=== PATIENT | female | born 1935 | race Caucasian/White ===

== ENCOUNTER 2019-06-16 22:04 | Inpatient (IN) | payer MEDICARE, OTHER ==
[~2019-06-16] VITALS: Ht 167.6 cm; Wt 69.1 kg
[2019-06-16] MEDS: PLEASE ENTER ALLERGIES MC SCH (22:26)
[2019-06-16] MEDS: PLEASE ENTER HEIGHT AND WEIGHT MC SCH (22:26)
[2019-06-16] MEDS ORDERED: ACETAMINOPHEN 500 MG TABLET PO ONE (22:30)
[2019-06-16 22:41] LABS: BASOPHILS # (AUTO) 0.03 x10^3/uL (0-0.1); BASOPHILS % (AUTO) 0 % (0-1); EOSINOPHILS # (AUTO) 0.16 x10^3/uL (0-0.4); EOSINOPHILS % (AUTO) 2 % (1-7); LYMPHOCYTES # (AUTO) 1.99 x10^3/uL (1-3.4); LYMPHOCYTES % (AUTO) 23 % (22-44); MD NO; MEAN CORPUSCULAR HEMOGLOBIN 29.9 pg (27.0-34.8); MEAN CORPUSCULAR HGB CONC 32.5 g/dL (32.4-35.8); MEAN CORPUSCULAR VOLUME 91.8 fL (80-100); MEAN PLATELET VOLUME 8.5 fL (7.4-10.4); MONOCYTES # (AUTO) 0.69 x10^3/uL (0.2-0.8); MONOCYTES % (AUTO) 8 % (2-9); NEUTROPHILS # (AUTO) 5.86 x10^3/uL (1.8-6.8); NEUTROPHILS % (AUTO) 67 % (42-75); PLATELET COUNT 209 x10^3/uL (130-400); RED BLOOD COUNT 5.04 x10^6/uL (3.82-5.3); RED CELL DISTRIBUTION WIDTH 14.6 % (9.6-15.2)
[2019-06-16] MEDS ORDERED: ACETAMINOPHEN 650 MG SUPP ONE (22:42)
[2019-06-16 22:51] LABS: ALANINE AMINOTRANSFERASE 24 U/L (12-78); ALBUMIN 3.6 g/dL (3.4-5.0); ANION GAP 4 mmol/L (5-15); CALCIUM 8.7 mg/dL (8.5-10.1); CHLORIDE 110 mmol/L (98-107); CREATININE 0.94 mg/dL (0.55-1.02)
[2019-06-16 22:53] LABS: ALKALINE PHOSPHATASE 87 U/L (45-117); BILIRUBIN,TOTAL 0.8 mg/dL (0.2-1.0); TOTAL PROTEIN 7.8 g/dL (6.4-8.2)
--- NOTE | 2019-06-16 22:57 | NUR ---
URINE TO LAB. PT TOLERATED PROCEDURE
--- NOTE | 2019-06-16 22:58 | NUR ---
[place] rn: straight cath pt for ua. sent to lab with primary rn. pt tolerated well. family x 1 at bs for procedure.
[2019-06-16] MEDS ORDERED: ACETAMINOPHEN 650 MG SUPP PR ONE (23:00)
--- NOTE | 2019-06-16 23:02 | NUR ---
PT TO CT SCAN
[2019-06-16 23:18] LABS: CULTURE INDICATED? YES; MICROSCOPIC INDICATED
[2019-06-16 23:41] LABS: RAPID INFLUENZA A Negative (Negative); RAPID INFLUENZA B Negative (Negative)
[2019-06-16] MEDS ORDERED: OMNIPAQUE 350 MG/ML, 100ML BOTTLE ONE (23:47)
[2019-06-17] MEDS ORDERED: CEFTRIAXONE PMX 1GM/50ML 50 ML IV ONE
--- NOTE | 2019-06-17 00:24 | NUR ---
REPORT TO FLOOR PT READY TO GO.
[2019-06-17 00:53] VITALS: BP 175/70
[2019-06-17] MEDS ORDERED: ACETAMINOPHEN 325 MG TABLET PO PRN (01:00)
[2019-06-17] MEDS: SODIUM CHLORIDE 0.9% 1,000 ML IV SCH ×3 (02:47→23:52)
[2019-06-17] MEDS: PLEASE ENTER HEIGHT AND WEIGHT MC SCH (03:04)
[2019-06-17] MEDS: PLEASE ENTER ALLERGIES MC SCH (03:05)
[2019-06-17 06:53] VITALS: BP 125/81
[2019-06-17] MEDS ORDERED: AZITHROMYCIN 500 MG in SODIUM CHLORIDE 0.9% 250 ML IV SCH (08:00)
[2019-06-17] MEDS ORDERED: CEFTRIAXONE PMX 1GM/50ML 50 ML IV SCH (08:00)
[2019-06-17] MEDS ORDERED: NITROFURANTOIN (MACROBID) 100 MG CAPSULE PO ONE (09:00)
[2019-06-17] MEDS: DOXYCYCLINE 100 MG in DEXTROSE 5% 250 ML IV SCH (13:00)
[2019-06-17 13:13] VITALS: BP 106/65
[2019-06-17 14:28] LABS: CULTURE INDICATED? YES; MICROSCOPIC INDICATED
[2019-06-17] MEDS ORDERED: FOSFOMYCIN 3 GM PACKET PO ONE (16:30)
[2019-06-17 19:50] VITALS: BP 144/83
[2019-06-17] MEDS ORDERED: NITROFURANTOIN (MACROBID) 100 MG CAPSULE PO SCH (21:00)
[2019-06-18] MEDS: DOXYCYCLINE 100 MG in DEXTROSE 5% 250 ML IV SCH ×2 (00:50→14:00)
[2019-06-18 02:07] VITALS: BP 143/96
[2019-06-18 10:26] LABS: BASOPHILS # (AUTO) 0.03 x10^3/uL (0-0.1); BASOPHILS % (AUTO) 0 % (0-1); EOSINOPHILS % (AUTO) 2 % (1-7); LYMPHOCYTES # (AUTO) 1.81 x10^3/uL (1-3.4); LYMPHOCYTES % (AUTO) 21 % (22-44); MD NO; MEAN CORPUSCULAR HEMOGLOBIN 29.8 pg (27.0-34.8); MEAN CORPUSCULAR HGB CONC 33.2 g/dL (32.4-35.8); MEAN CORPUSCULAR VOLUME 89.7 fL (80-100); MEAN PLATELET VOLUME 8.5 fL (7.4-10.4); MONOCYTES # (AUTO) 0.83 x10^3/uL (0.2-0.8); MONOCYTES % (AUTO) 10 % (2-9); NEUTROPHILS # (AUTO) 5.77 x10^3/uL (1.8-6.8); NEUTROPHILS % (AUTO) 67 % (42-75); PLATELET COUNT 192 x10^3/uL (130-400)
[2019-06-18 11:10] LABS: ANION GAP 9 mmol/L (5-15); CALCIUM 8.7 mg/dL (8.5-10.1); CHLORIDE 110 mmol/L (98-107)
[2019-06-18 11:14] LABS: CREATININE 0.87 mg/dL (0.55-1.02)
[2019-06-18] MEDS ORDERED: ACET325T26 PO (11:16)
[2019-06-18] MEDS ORDERED: DOXY100T PO (11:16)
[2019-06-18 13:47] VITALS: BP 121/76
[2019-06-18] MEDS ORDERED: FLU VACC QS2019-20 36MOS UP/PF 0.5 ML IM-VACC ONE (15:00)
== END 2019-06-18 15:50 | disposition home or self-care (01) | DRG 689 ==
LOC: ED 22:45 → EDIP 06-17 00:10 → 4NE 06-17 00:45 → DCLOUNGE 06-18 15:47
PROVIDERS: ADMIT Internal Medicine; ATTEND Internal Medicine
PROC: 0T9B70Z Drainage of Bladder with Drainage Device, Via Natural or Artificial Opening (ICD-10-PCS; principal; 2019-06-17)
DX: N39.0 Urinary tract infection, site not specified (principal); J18.9 Pneumonia, unspecified organism; K40.90 Unilateral inguinal hernia, without obstruction or gangrene, not specified as recurrent; F02.80 Dementia in other diseases classified elsewhere, unspecified severity, without behavioral disturbance, psychotic disturbance, mood disturbance, and anxiety; G30.9 Alzheimer's disease, unspecified; Z66 Do not resuscitate
CPT/HCPCS: 36415; 71045; 74177; 80048; 80053; 81001; 83605; 84145; 85025; 87040; 87077; 87086; 87186; 87400; 90686; 99285; G0378; J0456; J0696; J7060; Q9967; J7030; J7050

== ENCOUNTER 2019-06-21 12:30 | Emergency (ER) | payer MEDICARE, OTHER ==
[~2019-06-21] VITALS: Ht 172.7 cm; Wt 65.0 kg
[~2019-06-21 12:30] MED LIST: ACET325T26 PO; DOXY100T PO
[2019-06-21 12:36] VITALS: BP 126/85
--- NOTE | 2019-06-21 12:43 | NUR ---
PATIENT BROUGHT IN BY [facility] WITH SON. PER GLENDA JORDAN ONE WEEK AGO, TODAY DEVELOPING RIGHT HIP PAIN, NO REPORTS OF OTHER TRAUMA. THE PATIENT WAS AT [facility] TUESDAY FOR UTI.
[2019-06-21] MEDS ORDERED: SODIUM CHLORIDE FLUSH 10ML SYR IVF ONE (13:00)
[2019-06-21 13:08] LABS: MEAN CORPUSCULAR HEMOGLOBIN 29.5 pg (27.0-34.8); MEAN CORPUSCULAR HGB CONC 32.7 g/dL (32.4-35.8); MEAN CORPUSCULAR VOLUME 90.2 fL (80-100); MEAN PLATELET VOLUME 8.3 fL (7.4-10.4); PLATELET COUNT 231 x10^3/uL (130-400); RED BLOOD COUNT 5.07 x10^6/uL (3.82-5.3); RED CELL DISTRIBUTION WIDTH 14.6 % (9.6-15.2)
--- NOTE | 2019-06-21 13:11 | NUR ---
PT TO XRAY AT THIS TIME.
[2019-06-21 13:24] LABS: ALANINE AMINOTRANSFERASE 26 U/L (12-78); ALBUMIN 3.7 g/dL (3.4-5.0); ANION GAP 5 mmol/L (5-15); CALCIUM 9.1 mg/dL (8.5-10.1); CHLORIDE 110 mmol/L (98-107); CREATININE 0.91 mg/dL (0.55-1.02)
[2019-06-21 13:27] LABS: ALKALINE PHOSPHATASE 84 U/L (45-117); BASOPHILS % (AUTO) 0 % (0-1); BILIRUBIN,TOTAL 0.6 mg/dL (0.2-1.0); EOSINOPHILS # (AUTO) 0.22 x10^3/uL (0-0.4); EOSINOPHILS % (AUTO) 3 % (1-7); LYMPHOCYTES % (AUTO) 18 % (22-44); MONOCYTES # (AUTO) 0.57 x10^3/uL (0.2-0.8); MONOCYTES % (AUTO) 6 % (2-9); NEUTROPHILS # (AUTO) 6.41 x10^3/uL (1.8-6.8); NEUTROPHILS % (AUTO) 73 % (42-75); TOTAL PROTEIN 7.8 g/dL (6.4-8.2)
[2019-06-21 13:34] LABS: MD SCAN
[2019-06-21] MEDS ORDERED: KETOROLAC 30 MG/1 ML IVPush ONE (14:00)
[2019-06-21 14:48] LABS: MICROSCOPIC NOT IND
[2019-06-21 14:52] LABS: CULTURE INDICATED? NO
[2019-06-21] MEDS ORDERED: KETOROLAC 30 MG/1 ML ONE (15:04)
[2019-06-21] MEDS ORDERED: KETOROLAC 30 MG/1 ML IM ONE (15:30)
--- NOTE | 2019-06-21 17:01 | NUR ---
Pt up with walker and 2 person assistance. Unable to use walker appropriately d/t uderlying disease process. After steadied, pt able to walk up and down hallway on 's arm. Gait steady and strong. ERP notified.
== END 2019-06-21 17:28 | disposition home or self-care (01) ==
LOC: ED 12:50
DX: M70.71 Other bursitis of hip, right hip (principal); Y93.89 Activity, other specified
CPT/HCPCS: 36415; 73502; 80053; 81003; 85025; 96372; 99284; J1885

== ENCOUNTER 2019-06-24 15:00 | Emergency (ER) | payer MEDICARE, OTHER ==
[~2019-06-24] VITALS: Ht 170.2 cm; Wt 68.2 kg
--- NOTE | 2019-06-24 15:21 | NUR ---
Pt to 25 via wheelchair
--- NOTE | 2019-06-24 16:10 | NUR ---
assumed care of pt. pt from home, lives with . no bm x9-10 days. was admitted to [facility] w/ PNA and UTI. also has bursitis R hip. Today comes in d/t abdomen. was pulling knees to chest, moaning all night holding stomach. Abdomen semi firm. bs hypoactive. given miralax at home last night. no bm. rhonchi bilat lungs. vss. pt has hx dementia is acting baseline per family. awaiting xr restuls.
[2019-06-24] MEDS ORDERED: BISACODYL 5 MG EC TABLET ONE ×2 (16:28→16:44)
[2019-06-24] MEDS ORDERED: BISACODYL 5 MG EC TABLET PO ONE (16:30)
[2019-06-24] MEDS ORDERED: PINK LADY ENEMA 490 ML BOTTLE PR ONE (16:30)
--- NOTE | 2019-06-24 16:50 | NUR ---
dulcolax per mar. will attempt w/ enema and pt will be dc home with instructions to take bowel meds regularly.
--- NOTE | 2019-06-24 16:52 | NUR ---
called pharmacy for enema.
[2019-06-24 17:08] VITALS: BP 105/86
== END 2019-06-24 17:11 | disposition home or self-care (01) ==
LOC: ED 16:23
DX: K59.00 Constipation, unspecified (principal); G30.9 Alzheimer's disease, unspecified; R10.84 Generalized abdominal pain; Z87.440 Personal history of urinary (tract) infections; Z90.49 Acquired absence of other specified parts of digestive tract
CPT/HCPCS: 74018; 99283